=== PATIENT | female | born 1975 | race Caucasian/White ===

== ENCOUNTER 2016-05-29 08:05 | Day surgery (SDC) | payer OTHER ==
--- NOTE | 2016-05-16 11:29 | GHP ---
[f rep st] HISTORY AND PHYSICAL DATE OF ADMISSION: 05/29/2016 ADMITTING DIAGNOSIS: Menometrorrhagia. HISTORY OF PRESENT ILLNESS: Patient is a 41-year-old, 3, para 3-0-0-3, who presents to the office with complaints of heavy irregular menstrual cycles for the past 6 months. Cycles are every 28 days for 10 days. First 5 days are heavy with clots. She changes both a pad and tampon hourly. She has also experienced breakthrough bleeding during ovulation recently. Denies any new medications or any weight changes. Denies h/o anemia or blood transfusions. The patient did have an endometrial biopsy that was negative and had an ultrasound that showed no distinct masses within the uterus; endometrium was thickened at 2.2 cm and bilateral ovaries appeared normal. Patient is interested in an endometrial ablation at this time for treatment of her heavy menstrual cycles. PAST OBSTETRICAL HISTORY: In 1993, she had an uncomplicated vaginal delivery and delivered a viable female, weighing 8 pounds 1 ounce. In 2006, she had an uncomplicated vaginal delivery and delivered a viable male , weighing 8 pounds 8 ounces. In 2007, she had an uncomplicated vaginal delivery and delivered a viable male , weighing 8 pounds 3 ounces. GYNECOLOGICAL HISTORY: Menarche was age 9. Cycles usually every 28 days. She bleeds x10 days, heavy with minimal cramping. The patient denies any abnormal Pap smears or any exposure to sexually transmitted diseases. PAST MEDICAL HISTORY: Unremarkable. PAST SURGICAL HISTORY: Unremarkable. MEDICATIONS: None. ALLERGIES: No known drug allergies. SOCIAL HISTORY: Patient is . Lives with her and their 3 children. She is a banker. Denies any alcohol, tobacco or illicit drug use. FAMILY HISTORY: Noncontributory. LABORATORY DATA: H and H 14.3 and 41.9. TSH 2.25. PHYSICAL EXAMINATION: VITAL SIGNS: On admission, vital signs are stable. Afebrile. GENERAL: Alert, oriented x3. Well-nourished, well-developed 41-year -old female, no apparent distress. CARDIOVASCULAR: Regular rate and rhythm. LUNGS: Clear to auscultation. ABDOMEN: Soft, nontender, nondistended. Active bowel sounds. PELVIC: Bimanual exam, slightly enlarged uterus 8-10 weeks' size, mobile, nontender. Normal adnexa without masses or tenderness. ASSESSMENT/PLAN: The patient is a 41-year-old, 3, para 3 who presents with menometrorrhagia and desires treatment at this time. PLAN: 1. Discussed procedure, endometrial ablation and its limitations. Discussed n.p.o. status and postop recovery. 2. Surgical consents were obtained. Risks, benefits and alternatives reviewed with the patient including, but not limited to, bleeding, infection, damage to surrounding organs, and risk of uterine perforation. The patient is aware of all risks and wants to proceed with surgery at this time. We did discuss 20% amenorrhea rate. 3. Antibiotics precision aircraft structure assembler to OR. 4. SCDs for DVT prophylaxis. /[id number]/MODL MTDD
[~2016-05-29 08:05] MED LIST: ceFAZolin 2 GM/DEXTROSE 100 ML IV ONE
[2016-05-29] MEDS ORDERED: LIDOCAINE 1% 2 ML INJ ONE (08:18)
[2016-05-29] MEDS ORDERED: LR 1,000 ML IV ONE (08:40)
[2016-05-29] MEDS ORDERED: LIDOCAINE 1% 5 ML SDV ID PRN (08:40)
[2016-05-29] MEDS ORDERED: fentaNYL 100 MCG/2 ML INJ ONE ×2 (09:20→10:42)
[2016-05-29] MEDS ORDERED: PROPOFOL 200 MG/20 ML VIAL ONE (09:21)
[2016-05-29] MEDS ORDERED: SILVER NITRATE APPLICATOR 1 APPL TP ONE (09:22)
[2016-05-29] MEDS ORDERED: MIDAZOLAM 2 MG/2 ML VIAL ONE (09:22)
--- NOTE | 2016-05-29 10:14 | POSTOPPROG ---
Post Op Note Date of Operation: 05/29/16 Surgeon: Rosa Hill Beadworker: None Anesthesiologist: Dr. Rivera Anesthesia: GET(General Endotracheal) Pre-op Diagnosis: Menometrorrhagia Post-op Diagnosis: Menometrorrhagia Indication: 41 y/o with menometrorrhagia x 6 months duration Procedure: Endometrial Ablation - Beatriz Findings: BME-uterus 9-10 wk size, adnexa wnl; Uterus sounded to 10cm and Int. os 5cm Inf/Abcess present in the surg proc area at time of surgery?: No EBL: Minimal Total fluids administered: 250 cc LR UO: pt emptied her bladder prior to surgery Complications: None Specimen(s): None
[2016-05-29] MEDS ORDERED: HYDROmorphONE/DILAUDID 2 MG/ML INJ ONE (11:11)
--- NOTE | 2016-05-29 11:35 | GOP ---
[f rep st] OPERATIVE REPORT DATE OF OPERATION: 05/29/2016 SURGEON: Rosa Hill DO MINE TECHNICIAN: None. ANESTHESIA: General endotracheal. PREOPERATIVE DIAGNOSIS: Menometrorrhagia. POSTOPERATIVE DIAGNOSIS: Menometrorrhagia. PROCEDURE PERFORMED: Endometrial ablation using Beatriz. FINDINGS: On bimanual exam, the uterus is slightly enlarged at 9 to 10-week size. Normal adnexa without masses. Uterus was gently sounded at 10 cm and cervix sounded between 4 and 5 cm. SPECIMENS: None. ESTIMATED BLOOD LOSS: Less than 5 cc. INDICATIONS: This is a 41-year-old 3, para 3, with a history of menometrorrhagia for the past 6 months. Risks, benefits, and alternatives were discussed with the patient at length. Informed consent was obtained. The patient understands all risks and wants to proceed with surgery. DESCRIPTION OF PROCEDURE: The patient was taken to the operating room, where general anesthesia was obtained without difficulty. The patient was prepped and draped in normal sterile fashion, and placed in dorsal lithotomy position. Examination under anesthesia revealed a slightly enlarged uterus measuring 9 to 10-week size, and normal adnexa. A weighted speculum was placed inside the vagina. The anterior lip of the cervix was grasped with a single-tooth tenaculum. The cervix was sounded between 4 and 5 cm. The uterus was then gently sounded to 10 cm. The cervix was gently dilated up to a #8 with a Hegar. Beatriz device was then introduced inside the uterus up to the fundus of the uterus. The uterine width was assessed to be 5.5. The cavity was then assessed and at this time the procedure was done for a duration of 120 seconds. After the procedure, the Beatriz was removed. All instruments were then removed from the patient's vagina. There was noted to be some oozing from the tenaculum site, so silver nitrate was used x2. Hemostasis was achieved. Sponge and instrument count correct x2. No complications. The patient tolerated well. The patient was then taken out of dorsal lithotomy position, taken to recovery room in stable condition. COMPLICATIONS: None. IV FLUIDS: 250 cc LR. URINE OUTPUT: The patient emptied her bladder prior to the procedure. PATHOLOGY: None. /[id number]/MODL MTDD
== END 2016-05-29 12:38 | disposition home health service (06) ==
LOC: FSGY 08:05
PROVIDERS: ATTEND Obstetrics & Gynecology
PROC: 0U5B7ZZ Destruction of Endometrium, Via Natural or Artificial Opening (ICD-10-PCS; principal; 2016-05-29 09:30)
DX: N92.1 Excessive and frequent menstruation with irregular cycle (principal)
CPT/HCPCS: J0690; J1170; J2250; J2704; J3010

== ENCOUNTER 2017-12-16 11:56 | Emergency (ER) | payer OTHER ==
--- NOTE | 2017-12-16 13:49 | EDPHY ---
General <Eloina Terry - Last Filed: 12/16/17 20:06> - History Smoking Status: Former smoker <Marcio Guerrero - Last Filed: 12/18/17 16:50> Time Seen by Provider: 12/16/17 13:30 Narrative: CHIEF COMPLAINT: Dizzy HISTORY OF PRESENT ILLNESS: Patient presents by private vehicle with her spouse with complaints of dizziness and lightheadedness. The symptoms started approximately 9 days ago. This was after having and L4-S1 spinal fusion with Dr. Roque. She says that she feels that her incision is fine in the back pain is tolerable. However she notes some lightheadedness and dizziness this started soon after the procedure. This is very positional for her, worse when she is upright or sitting up. Significantly better when she lays down. Is also associated with a headache which she sits up at times. She also associates this with a subjective fever, some chills and sweats, dizzy, feeling fuzzy and even having some difficulty with her vision. She has no new numbness, tingling or weakness from baseline. She has no chest pain, shortness of breath, abdominal pain or urinary complaints. No rash. No stiff neck. She has stopped her morphine 2 days ago because she thought this was contributing, but stopping the medication did not help. She has no complaints regarding her surgical incision. No other associated complaints or modifying factors. REVIEW OF SYSTEMS: 10 systems were reviewed and negative with the exception of the elements mentioned in the history of present illness. PCP: Dr. Banks SPECIALISTS: Dr. Roque PAST MEDICAL HISTORY: Lumbar stenosis, degenerative disc disease PAST SURGICAL HISTORY: Endometrial ablation, cholecystectomy SOCIAL HISTORY: Nonsmoker. Rare alcohol use. No drug use. Works as a banker. Lives independently with her spouse. FAMILY HISTORY: Noncontributory EXAMINATION: Vitals: Triage VS reviewed General Appearance: Alert, no distress. Lying in left lateral position. Conversing in full sentences. Head: normocephalic, atraumatic Eyes: Pupils equal and round, no conjunctival pallor or injection ENT, Mouth: Mucous membranes moist Neck: Normal inspection, supple, non-tender Respiratory: Lungs are clear to auscultation Cardiovascular: Regular rate and rhythm. No murmur Gastrointestinal: Abdomen is soft and nontender Back: Lumbar midline surgical incision that is clean, dry and intact with Steri -Strips. No surrounding cellulitis, fluctuance or dehiscence. No drainage from the site. Neurological: A&O, nonfocal, sensory symmetric distally. Skin: Warm and dry, no rash Extremities: Nontender, no pedal edema Psychiatric: Mood and affect normal DIFFERENTIAL DIAGNOSES: Including but not limited to dural leak, dehydration, orthostasis, near-syncope , ACS, vertigo MDM: 1:50 p.m. Lightheadedness with near syncope, subjective fever at home, headache that is positional. Her vital signs are within normal limits here. I did not ambulate her due to her symptoms, but her neuro status seems to be well intact. She has no chest pain. Vital signs reveal no SIRS. We will obtain an EKG, laboratory studies, orthostatic vital signs. IV fluids administered. I will discuss with Neurosurgery further assistance. 2:10 p.m. Case discussed with Dr. Roque. He will evaluate the patient emergency department. 2:40 p.m. CBC reveals leukocytosis. Chemistry is unremarkable with normal renal function. Point of care troponin is negative. 3:18 p.m. Case discussed with Dr. Roque. He has evaluated patient. He thinks that a dural leak is unlikely, but he has discussed with interventional radiologist to perform a tap and blood patch if needed. They are requesting MRI of the lumbar spine prior to doing so. I have ordered this without contrast per Dr. Roque. I have discussed this with the patient she has verbally consented. 3:30 p.m. Notified by printing technician. There is going to be a delay in her imaging due to 2 emergent cases ahead of her. Patient has been notified this and agrees to proceed. 5:00 p.m. Patient re-evaluated. MRI has notified us that she is the next person to scan in approximately 30 min. She remains comfortable at this time. She is asking for pain medication for the procedure as it is very painful for lay on her back. I have ordered this. 5:05 p.m. At this time I have discussed the case with Eloina Terry PA-C. She will assume care of the patient at this time. Please see her note for final disposition. Patient is pending MRI and interventional radiology procedure. SUPERVISION: Patient was independently examined, but I discussed the case with my secondary supervising physician Dr. Tesfaye CONSULTATION: Neurosurgery consultation, Dr. Roque ([facility]) - Diagnostics Imaging Results: Imaging Impressions Abscess Drainage 12/16/17 00:00 Impression: 1. 7 mL of serosanguineous fluid aspirated from the posterior subcutaneous spinal tissue, likely representing postoperative seroma, sent for Gram stain and culture. 2. Blood patch performed predominantly on the left side at L3-L4, and to a very small extent on the right side at L4-L5, detailed as above. Total of 17 mL of blood delivered without issues prior to discharge. Comment: If this provides partial relief and additional blood patch is needed, consideration can be made towards a caudal epidural blood patch next time. . Guidance Ultrasound 12/16/17 00:00 Impression: 1. 7 mL of serosanguineous fluid aspirated from the posterior subcutaneous spinal tissue, likely representing postoperative seroma, sent for Gram stain and culture. 2. Blood patch performed predominantly on the left side at L3-L4, and to a very small extent on the right side at L4-L5, detailed as above. Total of 17 mL of blood delivered without issues prior to discharge. Comment: If this provides partial relief and additional blood patch is needed, consideration can be made towards a caudal epidural blood patch next time. . Lumbar Puncture 12/16/17 14:59 Impression: 1. 7 mL of serosanguineous fluid aspirated from the posterior subcutaneous spinal tissue, likely representing postoperative seroma, sent for Gram stain and culture. 2. Blood patch performed predominantly on the left side at L3-L4, and to a very small extent on the right side at L4-L5, detailed as above. Total of 17 mL of blood delivered without issues prior to discharge. Comment: If this provides partial relief and additional blood patch is needed, consideration can be made towards a caudal epidural blood patch next time. . - Objective Vital Signs: Initial Vital Signs Temperature (C) 98.2 F 12/16/17 12:01 Heart Rate 98 12/16/17 12:01 Respiratory Rate 18 12/16/17 12:01 Blood Pressure 141/81 H 12/16/17 12:01 O2 Sat (%) 96 12/16/17 12:01 O2 Delivery Mode Room Air Allergies/Adverse Reactions: No Known Allergies Allergy (Verified 12/16/17 12:01) Home Medications: Medication Instructions Recorded NK [No Known Home Meds] 03/23/17 Laboratory Results: Laboratory Results 12/16/17 13:30 12/16/17 13:30 Microbiology Results: MICROBIOLOGY 12/16/17 19:34 Buttock - Aspirate Gram Stain - Final 12/16/17 19:34 Buttock - Aspirate Anaerobic Culture - Preliminary Medications Given: Discontinued Medications Hydromorphone HCl (Dilaudid) 1 mg IVP PRN PRN PRN Reason: procedure Stop: 12/26/17 17:01 Last Admin: 12/16/17 17:35 Dose: 1 mg Sodium Chloride (Ns) 1,000 mls @ 0 mls/hr IV EDNOW ONE; Wide Open PRN Reason: Protocol Stop: 12/16/17 14:31 Last Admin: 12/16/17 14:36 Dose: 1,000 mls Point of Care Test Results: Chemistry 12/16/17 14:20 POC Troponin I 0.00 ng/mL ng/mL (0.00-0.08) ED Course Care Turn Over (time): 18:[address]:: Eloina Terry <Eloina Terry - Last Filed: 12/16/17 20:06> <Marcio Guerrero - Last Filed: 12/18/17 16:50> Discussion: Assume care by Marcio Guerrero. Patient is scheduled to go to MRI and then it is okay to IR for blood patch by Dr. Hough. Patient returns from IR reporting resolution of dizziness and headache. She is asking to be discharged home. She has been given verbal and written instructions regarding postprocedure of the blood patch. She has a call Dr. Rosen office on Thursday for follow-up appointment. She already has an appointment scheduled for December 28 of this month. Her is at bedside and assumed care of the patient. (Eloina Terry) Departure <Eloina Terry - Last Filed: 12/16/17 20:06> <Marcio Guerrero - Last Filed: 12/18/17 16:50> - Departure Disposition: Home, Routine, Self-Care Clinical Impression: Near syncope Condition: Good Instructions: Epidural Blood Patch (DC), Near Syncope (ED) Additional Instructions: Please call Dr. Yuen on Thursday for follow-up appointment. Referrals: KASSANDRA GUERRERO MD [Other] - As per Instructions Valdo Roque MD [Medical Doctor] - As per Instructions
[2017-12-16 14:06] LABS: PLATELET COUNT 524 10^3/uL (150-400)
[2017-12-16] MEDS ORDERED: NS 1,000 ML IV ONE (14:30)
[2017-12-16] MEDS ORDERED: HYDROmorphONE/DILAUDID 1 MG/ML INJ IVP PRN (17:02)
--- NOTE | 2017-12-16 18:35 | GCON ---
NEUROSURGICAL CONSULTATION DATE OF CONSULTATION: 12/16/2017 CHIEF COMPLAINT: Dizziness and fatigue. HISTORY OF PRESENT ILLNESS: The patient is a pleasant 42-year-old female who recently underwent an L 4-S1 fusion with Dr. Roque on 12/08/2017. The patient was recovering well at home until appr oximately 2 days ago when she developed intermittent sweats and chills as well as a heaviness sensati on in her head, which was also associated with dizziness and lightheadedness whenever she would sit u p or stand up to walk. This was accompanied by significant fatigue as well. She states that her sym ptoms really started about 2 days ago after she had discontinued use of her narcotic pain medication as well as her muscle relaxers since she was not having much in the way of postoperative surgical tashi n anymore. She denies headaches or any new numbness, tingling, or weakness in her lower extremities. She does report some typical postoperative incisional discomfort that is completely manageable. Abdi garcia is not having any new bowel or bladder changes. She had an episode of emesis at home, but this was likely related to her history of known lactose intolerance after she had deliberately drank some mil k in order to try to have a bowel movement given her prior constipation. Her constipation has since resolved. Earlier today, the patient contacted our office reporting the above-mentioned symptoms and was recomm ended she go to the emergency room for further evaluation. The patient is being seen in the emergenc y department with Dr. Roque. PAST MEDICAL HISTORY: Lumbar stenosis, degenerative disk disease. PAST SURGICAL HISTORY: Endometrial ablation and cholecystectomy. SOCIAL HISTORY: The patient is , lives with her . She does not smoke. She drinks alc ohol rarely. She denies use of drugs. FAMILY HISTORY: Noncontributory. ALLERGIES: No known drug allergies. PHYSICAL EXAM: GENERAL: Pleasant, tired appearing 42-year-old female who appears mildly uncomfortab le particularly when sitting up. HEAD, EARS, NOSE, THROAT: Within normal limits. EXTREMITIES: Wit hin normal limits. Her incision is healing well without evidence of redness, drainage, or pain. The Steri-Strips remain in place. NEUROLOGIC: Patient is awake, alert, and oriented x4. Cranial nerve s 2-12 are intact to gross examination. Speech is fluent. Tongue is midline. Spinal accessory musc les are intact. She has equal and symmetric strength of bilateral upper and lower extremities with n ormal sensation throughout all dermatome distributions of the bilateral upper and lower extremities. VITAL SIGNS: Temperature is 98.2, heart rate 98, respiratory rate 18, blood pressure is 141/81, oxy gen saturations 96% on room air. LAB RESULTS: Sodium is 140, potassium is 3.8, chloride 102, carbon dioxide 27, BUN 8, creatinine 0.5 . White blood cell count is 16.59, hemoglobin is 12.9, hematocrit is 38, platelet count 524, neutrop hil percentage is 81.7, lymphocytes are 12.8, monocytes are 3.5. ESR is 28 and the CRP is 39.8. REVIEW OF SYSTEMS: Negative other than mentioned in the HPI. IMPRESSION: This is a 42-year-old female who is 8 days out from undergoing an L4-S1 transforaminal l umbar interbody fusion on 12/08/[address] Roque. Two days ago, she developed positional lightheadedness and dizziness without evidence of positional headaches. She also has developed inter mittent chills and sweats. She currently has a white count of 17. She is quite debilitated in regar d to being able to get up and move around due to this positional lightheadedness. At this time, diff erential diagnosis is CSF leak, postoperative infection, or postoperative positional orthostasis and vertigo. PLAN: All the above issues were discussed the patient in detail today with the patient and her darlin walker and Dr. Roque present. At this time, Dr. Roque recommends the patient undergo a b lood patch and did speak with Dr. Alyssia Hough regarding this procedure. Dr. Hough would like to proceed wi th a lumbar MRI, which we agree with. Dr. Roque has requested that Dr. Hough first aspirate th e epidural space to see if there is evidence of purulent fluid collection prior to placing the blood patch. Once this is completed, the patient will likely be discharged to home with instructions to nava rosa per IR and Dr. Hough's recommendations and follow up in our clinic next week. /[id number]/MODL
[2017-12-16] MEDS ORDERED: LIDOCAINE 1% 300 MG/30 ML SDV ONE (18:37)
[2017-12-16] MEDS ORDERED: IOPAMIDOL (ISOVUE-M 300) 15 ML VIAL ONE (18:37)
[2017-12-16 20:53] VITALS: BP 127/78
--- NOTE | 2017-12-19 04:43 | CPEKG ---
Test Reason : OPEN Blood Pressure : / mmHG Vent. Rate : 081 BPM Atrial Rate : 081 BPM P-R Int : 155 ms QRS Dur : 103 ms QT Int : 405 ms P-R-T Axes : 010 -48 019 degrees QTc Int : 470 ms Sinus rhythm LAD, consider left anterior fascicular block Borderline T abnormalities, anterior leads Confirmed by Cecilio Kc ([id number]) on 12/19/2017 4:43:21 AM Referred By: Confirmed By:Cecilio Kc
== END 2017-12-16 20:53 | disposition home or self-care (01) ==
PROC: 009U3ZX Drainage of Spinal Canal, Percutaneous Approach, Diagnostic (ICD-10-PCS; principal; 2017-12-16)
PROC: 3E0S3GC Introduction of Other Therapeutic Substance into Epidural Space, Percutaneous Approach (ICD-10-PCS; principal; 2017-12-16)
DX: R55 Syncope and collapse (principal); L76.34 Postprocedural seroma of skin and subcutaneous tissue following other procedure
CPT/HCPCS: 84484-PO; 96374; J1170; Q9967